=== PATIENT | female | born 1955 | race Caucasian/White ===

== ENCOUNTER 2020-08-09 22:25 | Emergency (ER) | payer OTHER ==
[~2020-08-09] VITALS: Ht 162.6 cm; Wt 59.0 kg
[2020-08-10 01:44] VITALS: BP 160/80
== END 2020-08-10 01:47 | disposition home or self-care (01) ==
LOC: ER 22:25
DX: R06.02 Shortness of breath (principal); Z20.828 Contact with and (suspected) exposure to other viral communicable diseases

== ENCOUNTER 2020-11-04 19:02 | Emergency (ER) | payer OTHER ==
[~2020-11-04] VITALS: Ht 162.6 cm; Wt 59.0 kg
[2020-11-04 21:04] LABS: HEMATOCRIT 40.9 % (37.0-47.0); HEMOGLOBIN 13.6 gm/dL (12.0-15.0); MCH 31.9 pg (26.0-34.0); MCHC 33.1 g/dL (28.0-37.0); MCV 96.4 fL (80.0-100.0); RBC 4.25 mil/uL (4.20-5.00); RDW 13.9 % (10.5-14.5)
[2020-11-04 21:11] LABS: CALCIUM 9.7 mg/dL (8.5-10.1); CREATININE 1.1 mg/dL (0.6-1.0); POTASSIUM 3.6 mmol/L (3.5-5.1)
[2020-11-04 21:23] LABS: ALBUMIN 4.3 g/dL (3.4-5.0); TOTAL PROTEIN 7.7 g/dL (6.4-8.2)
[2020-11-04] MEDS ORDERED: ALEVE220 M1 PO (23:01)
[2020-11-04] MEDS ORDERED: ZOFRAN ODT4 MG PO (23:07)
[2020-11-04] MEDS ORDERED: BENTYL 10 MG CA10 MG PO (23:07)
[2020-11-04 23:35] VITALS: BP 119/63
== END 2020-11-04 23:50 | disposition home or self-care (01) ==
LOC: ER 19:02
PROVIDERS: Nurse Practitioner Family
DX: K52.9 Noninfective gastroenteritis and colitis, unspecified (principal); Z79.899 Other long term (current) drug therapy; Z91.041 Radiographic dye allergy status

== ENCOUNTER 2021-08-18 11:33 | Inpatient (IN) | payer OTHER ==
[~2021-08-18] VITALS: Ht 162.6 cm; Wt 55.3 kg
--- NOTE | ~2021-08-18 | EMS ---
[facility] [address] [place] [address] EMS Patient Care Report Name: SPARKLE MOCTEZUMA Room #: 207-P [facility] IN M.R.#: [id number] Admission: 08/18/21 Attend Phys: Abi Dickerson MD Discharge: 08/19/21 Date of : 57 Report #: [id number] THIS REPORT FOR: //name// Report Transmitted: 09/04/2021 17:52 EMS Care Summary [facility] MED-ACT Incident [id number] @ 08/18/2021 10:53 Incident Location [address] [place] [address] Patient SPARKLE MOCTEZUMA Female, 66 Years 1955 Patient Address [address] [place] [address] Patient History None Reported, Chief Complaint difficulty breathing Disposition Transported No Lights/[place] Dispatch Reason Chest Pain (Non-Traumatic) Transported To [facility] Narrative Arrived to find pt sitting on an exam table in a doctors office. Pt complained of difficulty breathing and chest tightness since evening. Pt also complained of a sore throat, difficulty swallowing, a productive cough, and palpations. Upon EMS arrival pt appeared very anxious and was hyperventilating. Pt denied fever, . Pt stated it just felt like she could not get a deep breath. Pt was assisted to the cot and placed in the position of comfort. En route to was couched to slow her breathing and pt seemed to calm down. Upon arrival pt was taken to RM 1 and care transferred to staff training and development manager [facility] [address] [place] [address] EMS Patient Care Report Name: SPARKLE MOCTEZUMA Room #: 207-P DIS IN M.R.#: [id number] Admission: 08/18/21 Attend Phys: Aib Dickerson MD Discharge: 08/19/21 Date of : 57 Report #: [id number] with report. Initial Vitals @11:10P: 45,SpO2: 94, @11:06P: 111,SpO2: 98,PA Suspected: false @11:27P: 101,R: 18,BP: 173/82,Pain: 2/10,GCS: 15,Glucose: 103,SpO2: 99,Revised Trauma: 12, @11:04P: 124,R: 18,BP: 198/95,Pain: 2/10,GCS: 15,Temp: 97.6F,SpO2: 97,Revised Trauma: 12, Impression Anxiety reaction/Emotional upset Procedures @11:06 12-Lead ECG @11:15 IV Therapy - Saline Lock 10cc (18 ga) Site: Antecubital-Right Response: UnchangedFailed Timeline 10:50,Call Received 10:50,Psap Call 10:53,Dispatched 10:54,En Route 10:59,On Scene 11:01,At Patient 11:04,BP: 198/95 M,PULSE: 124,RR: 18 R,SPO2: 97 Ox,ETCO2: ,BG: ,PAIN: 2,GCS: 15, 11:06,12-Lead ECG, 11:06,BP: / M,PULSE: 111,RR: R,SPO2: 98 Ox,ETCO2: ,BG: ,PAIN: ,GCS: , 11:10,BP: / M,PULSE: 45,RR: R,SPO2: 94 Ox,ETCO2: ,BG: ,PAIN: ,GCS: , 11:15,IV Therapy - Saline Lock 10cc 18 ga Site: Antecubital-Right,Response: UnchangedFailed, 11:21,Depart Scene 11:27,BP: 173/82 M,PULSE: 101,RR: 18 R,SPO2: 99 Ox,ETCO2: ,B,PAIN: 2,GCS: 15, 11:28,At Destination 11:50,Call Closed Disclaimer v1.1 Copyright 2020 [employer] This EMS Care Summary contains data elements from the applicable legal record (which may be displayed differently). It is designed to provide pertinent information for the following purposes: continuity of care, clinical quality, and state data reporting. The complete legal [place] [address] EMS Patient Care Report Name: SPARKLE MOCTEZUMA Room #: 207-P [facility] IN M.R.#: [id number] Admission: 08/18/21 Attend Phys: Abi Dickerson MD Discharge: 08/19/21 Date of : 57 Report #: [id number] and administrators of the receiving hospital in [employer]'s Patient Tracker. All data is provided "as is."
--- NOTE | ~2021-08-18 | EMS ---
[facility] [address] [place] [address] EMS Patient Care Report Name: SPARKLE MOCTEZUMA Room #: 207-P [facility] IN M.R.#: [id number] Admission: 08/18/21 Attend Phys: Abi Dickerson MD Discharge: 08/19/21 Date of : 57 Report #: [id number] THIS REPORT FOR: //name// Report Transmitted: 08/23/2021 14:07 EMS Care Summary [facility] MED-ACT Incident [id number] @ 08/18/2021 10:53 Incident Location [address] [place] [address] Patient SPARKLE MOCTEZUMA Female, 66 Years 1955 Patient Address [address] [place] [address] Patient History None Reported, Chief Complaint difficulty breathing Disposition Transported No Lights/[place] Dispatch Reason Chest Pain (Non-Traumatic) Transported To [facility] Narrative Arrived to find pt sitting on an exam table in a doctors office. Pt complained of difficulty breathing and chest tightness since evening. Pt also complained of a sore throat, difficulty swallowing, a productive cough, and palpations. Upon EMS arrival pt appeared very anxious and was hyperventilating. Pt denied fever, . Pt stated it just felt like she could not get a deep breath. Pt was assisted to the cot and placed in the position of comfort. En route to was couched to slow her breathing and pt seemed to calm down. Upon arrival pt was taken to RM 1 and care transferred to staff toxicologist [facility] [address] [place] [address] EMS Patient Care Report Name: SPARKLE MOCTEZUMA Room #: 207-P [facility] IN M.R.#: [id number] Admission: 08/18/21 Attend Phys: Abi Dickerson MD Discharge: 08/19/21 Date of : 57 Report #: [id number] with report. Initial Vitals @11:10P: 45,SpO2: 94, @11:06P: 111,SpO2: 98,PR Suspected: false @11:27P: 101,R: 18,BP: 173/82,Pain: 2/10,GCS: 15,Glucose: 103,SpO2: 99,Revised Trauma: 12, @11:04P: 124,R: 18,BP: 198/95,Pain: 2/10,GCS: 15,Temp: 97.6F,SpO2: 97,Revised Trauma: 12, Impression Anxiety reaction/Emotional upset Procedures @11:06 12-Lead ECG @11:15 IV Therapy - Saline Lock 10cc (18 ga) Site: Antecubital-Right Response: UnchangedFailed Timeline 10:50,Call Received 10:50,Psap Call 10:53,Dispatched 10:54,En Route 10:59,On Scene 11:01,At Patient 11:04,BP: 198/95 M,PULSE: 124,RR: 18 R,SPO2: 97 Ox,ETCO2: ,BG: ,PAIN: 2,GCS: 15, 11:06,12-Lead ECG, 11:06,BP: / M,PULSE: 111,RR: R,SPO2: 98 Ox,ETCO2: ,BG: ,PAIN: ,GCS: , 11:10,BP: / M,PULSE: 45,RR: R,SPO2: 94 Ox,ETCO2: ,BG: ,PAIN: ,GCS: , 11:15,IV Therapy - Saline Lock 10cc 18 ga Site: Antecubital-Right,Response: UnchangedFailed, 11:21,Depart Scene 11:27,BP: 173/82 M,PULSE: 101,RR: 18 R,SPO2: 99 Ox,ETCO2: ,B,PAIN: 2,GCS: 15, 11:28,At Destination 11:50,Call Closed Disclaimer v1.1 Copyright 2020 [employer] This EMS Care Summary contains data elements from the applicable legal record (which may be displayed differently). It is designed to provide pertinent information for the following purposes: continuity of care, clinical quality, and state data reporting. The complete [place] [address] EMS Patient Care Report Name: SPARKLE MOCTEZUMA Room #: 207-P [facility] IN M.R.#: [id number] Admission: 08/18/21 Attend Phys: Abi Dickerson MD Discharge: 08/19/21 Date of : 57 Report #: [id number] and administrators of the receiving hospital in [employer]'s Patient Tracker. All data is provided "as is."
[~2021-08-18 11:33] MED LIST: ALEVE220 M1 PO; BENTYL 10 MG CA10 MG PO; ZOFRAN ODT4 MG PO
[2021-08-18 11:34] VITALS: BP 147/96
[2021-08-18 12:17] LABS: ABSOLUTE NEUTROPHILS 6.3 thou/uL (1.4-8.2); EOSINOPHILS 1.8 % (0.0-3.0); HEMATOCRIT 42.5 % (37.0-47.0); HEMOGLOBIN 14.1 gm/dL (12.0-15.0); LYMPHOCYTES 19.9 % (24.0-44.0); MCH 32.1 pg (26.0-34.0); MCHC 33.3 g/dL (28.0-37.0); MCV 96.4 fL (80.0-100.0); MONOCYTES 5.5 % (1.0-8.0); PLATELET COUNT 350 thou/uL (150-400); POLYS 71.8 % (36.0-66.0); RBC 4.41 mil/uL (4.20-5.00); RDW 13.8 % (10.5-14.5); WBC 8.8 thou/uL (4.0-11.0)
[2021-08-18 12:24] LABS: CALCIUM 10.2 mg/dL (8.5-10.1); CREATININE 1.2 mg/dL (0.6-1.0)
[2021-08-18 12:54] LABS: URINE BILIRUBIN NEGATIVE (Negative); URINE BLOOD NEGATIVE (Negative); URINE CLARITY SL CLOUDY; URINE COLOR YELLOW; URINE GLUCOSE-RANDOM* NEGATIVE (Negative); URINE KETONES NEGATIVE (Negative); URINE NITRITE-REFLEX NEGATIVE (Negative); URINE PROTEIN (DIPSTICK) NEGATIVE (Negative); URINE UROBILINOGEN 0.2 E.U./dl (0.2-1.0)
[2021-08-18 13:10] LABS: URINE LEUKOCYTES-REFLEX 2+ (Negative)
[2021-08-18 13:12] LABS: BACTERIA-REFLEX >30 Many /HPF (None Seen); CASTS None Seen /LPF (None Seen); CRYSTALS None Seen /LPF (None Seen); SQUAMOUS 4-10 Moderate /LPF (0-3); URINE RBC None Seen /HPF (NONE SEEN); URINE WBC-REFLEX 6-15 Few /HPF (0-5)
[2021-08-18 17:34] LABS: CHOLESTEROL 205 mg/dL (<200); HDL CHOLESTEROL 63 mg/dL (>40); LDL CHOLESTEROL 115 mg/dL (<100); TC:HDL 3.3 Ratio (Not establshd); TRIGLYCERIDE 135 mg/dL (<150); VLDL 27 mg/dL (<40)
[2021-08-18 18:07] VITALS: BP 129/73
[2021-08-18 18:31] VITALS: BP 154/77
[2021-08-18 19:18] LABS: HEMATOCRIT 40.2 % (37.0-47.0); MCH 31.3 pg (26.0-34.0); MCHC 32.3 g/dL (28.0-37.0); MCV 96.9 fL (80.0-100.0); RBC 4.14 mil/uL (4.20-5.00); RDW 13.9 % (10.5-14.5); WBC 7.6 thou/uL (4.0-11.0)
[2021-08-18 19:41] LABS: CALCIUM 9.8 mg/dL (8.5-10.1); POTASSIUM 4.2 mmol/L (3.5-5.1)
[2021-08-18 20:31] VITALS: BP 145/85
--- NOTE | 2021-08-18 21:38 | NUR ---
PT ADMIT FROM ED WITH NSTEMI,COUGH AND UTI.PT IS 66-YEAR -OLD FEMALE,A/OX4.ARRIVED TO UNIT AT SHIFT CHANGE. AT BEDSIDE AT THE BEGINNING OF THE SHIFT.PT DENIES ANY ACUTE DISTRESS.REQUESTING BROTH AND WAS PROVIDED.VSS.PT ORIENTED TO RM AND UNIT ACTIVITIES.DENIES ANY USE OF ANY MEDICATION AT HOME, PRESCRIBED OR OTC.USES MARIJUANA OCCASIONALLY.ADMISSION ASSESSMENT COMPLETED DOCUMENTED.PT DENIES ANY CONCERNS AT THIS TIME.WILL CONTINUE TO MONITOR PER POC.
[2021-08-19 00:18] VITALS: BP 142/89
[2021-08-19 04:06] LABS: GLYCOHEMOGLOBIN (HGB A1C) 5.3 % (4.8-5.6)
[2021-08-19 04:33] VITALS: BP 136/93
--- NOTE | 2021-08-19 07:37 | EKG ---
[place] [address] [facility] [place] [address] ELECTROCARDIOGRAM REPORT Name: RHIANNASPARKLE Room #: 207-P ADM IN M.R.#: [id number] Admission: 08/18/21 Attend Phys: Abi Dickerson MD Discharge: Date of : 57 Report #: [id number] [facility] ED Test Date: 2021-08-18 Test Time: 11:43:29 Pat Name: SPARKLE MOCTEZUMA Department: Room: 207 Gender: F Process Coach: STARR : 1955 Requested By: Garth Freed Order Number: [id number] MD: Merrill Bradshaw Measurements Intervals [place] Rate: 76 P: 39 IN: 110 QRS: 43 QRSD: 83 T: 32 QT: 386 QTc: 435 Interpretive Statements Sinus rhythm Borderline short IN interval Baseline wander in lead(s) III No previous ECG available for comparison Electronically Signed On 08-19-2021 7:37:25 WORKFORCE DEVELOPMENT VICE PRESIDENT by Merrill Bradshaw [email or web address] <ELECTRONICALLY SIGNED> By: Merrill Bradshaw MD, [facility] 08/19/21 0737 1143 1143 Merrill Bradshaw MD, FACC /EPI
[2021-08-19 07:42] VITALS: BP 144/103
[2021-08-19 07:43] VITALS: BP 159/129
[2021-08-19 11:48] VITALS: BP 126/74
[2021-08-19] MEDS ORDERED: CEFUROXIME500 MG PO ×2 (11:51)
[2021-08-19] MEDS ORDERED: TESSALON PERLE100 MG PO ×2 (11:51)
[2021-08-19] MEDS ORDERED: VENTOLIN HFA 1818 GM INH ×2 (11:51)
--- NOTE | 2021-08-19 13:03 | 2DMMODE ---
[facility] [place] [address] 2 D/M-MODE ECHOCARDIOGRAM Name: SPARKLE MOCTEZUMA Room #: 207-P ADM IN M.R.#: [id number] Admission: 08/18/21 Attend Phys: Abi Dickerson MD Discharge: Date of : 57 Report #: [id number] THIS REPORT FOR: cc: FAM - Family physician unknown FAM - Family physician unknown Avila Oh MD [facility] ~ APPROVED REPORT Study performed: 08/19/2021 10:28:53 EXAM: Comprehensive 2D, Doppler, and color-flow Echocardiogram Patient Location: Bedside Room #: 207 Status: routine BSA: 1.59 HR: 108 bpm BP: 159/129 mmHg Rhythm: Tachycardia Other Information Study Quality: Adequate Indications Chest Pain Hx: COVID, COPD. 2D Dimensions RVDd: 22.76 mm IVSd: 10.15 (7-11mm) LVOT Diam: 20.31 (18-24mm) LVDd: 40.57 mm PWd: 9.76 (7-11mm) LVDs: 27.94 (25-40mm) Left Atrium: 30.83 (27-40mm) Aortic Root: 30.96 mm Volumes Left Atrial Volume (Systole) Single Plane 4CH: 38.10 mL Single Plane 2CH: 36.45 mL LA ESV Index: 24.00 mL/m2 Aortic Valve AoV Peak Gonzalo.: 2.02 m/s AO Peak Gr.: 16.31 mmHg LVOT Max P.79 mmHg LVOT Max V: 1.40 m/s [facility] [place] [address] [address] 2 D/M-MODE ECHOCARDIOGRAM Name: SPARKLE MOCTEZUMA Room #: 207-P [facility] IN M.R.#: [id number] Admission: 08/18/21 Attend Phys: Abi Dickerson MD Discharge: Date of : 57 Report #: [id number] CORINA Vmax: 2.24 cm2 Mitral Valve E/A Ratio: 0.5 MV Decel. Time: 111.96 ms MV E Max Gonzalo.: 0.49 m/s MV A Gonzalo.: 1.06 m/s MV PHT: 32.47 ms Pulmonary Valve PV Peak Gonzalo.: 1.11 m/s PV Peak Gr.: 4.89 mmHg Pulmonary Vein P Vein S: 0.53 m/s P Vein D: 0.48 m/s P Vein S/D Ratio: 1.10 Tricuspid Valve TR Peak Gonzalo.: 2.41 m/s RAP Estimate: 5.00 mmHg TR Peak Gr.: 23.21 mmHg PA Pressure: 27.00 mmHg Left Ventricle The left ventricle is normal size. There is normal LV segmental wall motion. There is normal left ventricular wall thickness. Left ventricular systolic function is hyperdynamic. LVEF is 65-70%. Mild diastolic dysfunction Right Ventricle The right ventricle is normal size. The right ventricular systolic function is normal. Atria The left atrium size is normal. The right atrium size is normal. Aortic Valve The aortic valve is mildly calcified. No aortic regurgitation There is no aortic valvular stenosis. Mitral Valve The mitral valve is normal in structure. There is no mitral valve regurgitation noted. No evidence of mitral valve stenosis. Tricuspid Valve The tricuspid valve is normal in structure. Trace tricuspid [facility] [address] [place] [address] 2 D/M-MODE ECHOCARDIOGRAM Name: SPARKLE MOCTEZUMA Room #: 207-P [facility] [place] IN M.R.#: [id number] Admission: 08/18/21 Attend Phys: Abi Dickerson MD Discharge: Date of : 57 Report #: [id number] regurgitation. Estimated PAP is 27mmHg. Pulmonic Valve The pulmonary valve is normal in structure. There is no pulmonic valvular regurgitation. Great Vessels The aortic root is normal in size. Ascending aorta is not well visualized. IVC is normal in size and collapses >50% with inspiration. Pericardium There is no pericardial effusion. <Conclusion> Left ventricular systolic function is hyperdynamic. There is normal LV segmental wall motion. LVEF is 65-70%. Mild diastolic dysfunction The aortic valve is mildly calcified. No aortic regurgitation or stenosis The mitral valve is normal in structure. No mitral valve regurgitation. Trace tricuspid regurgitation. Estimated pulmonary artery pressure of 27mmHg. There is no pericardial effusion. <ELECTRONICALLY SIGNED> By: Avila Oh MD, [facility] 08/19/21 1303 1303 130 Avila Oh MD, [facility] /INF
[2021-08-19 13:24] VITALS: BP 126/74
--- NOTE | 2021-08-19 14:19 | NUR ---
Assumed care of pt this AM. Pt A&O x4, on RA. SR on the monitor. Pt c/o noncardiac chest pain associated w/ cough. Given pain medication. Plan to discharge today w/ heart monitor. IV & tele dc'ed. Discharge education provided, forms signed & posted in chart. Pt wheeled to main entrance.
[2021-08-20] MEDS ORDERED: PREDNISONE 10 M10 M1 PO ×2 (11:21)
== END 2021-08-19 14:58 | disposition home or self-care (01) | DRG 205 ==
LOC: ER 11:33 → 2N 14:22 → EROBS 14:22 → 2N 18:06
PROVIDERS: Nurse Practitioner; Nurse Practitioner Family; ADMIT Internal Medicine; ATTEND Internal Medicine
DX: M94.0 Chondrocostal junction syndrome [Tietze] (principal); R65.11 Systemic inflammatory response syndrome (SIRS) of non-infectious origin with acute organ dysfunction; N39.0 Urinary tract infection, site not specified; I49.9 Cardiac arrhythmia, unspecified; R77.8 Other specified abnormalities of plasma proteins; Z20.822 Contact with and (suspected) exposure to COVID-19; F03.90 Unspecified dementia, unspecified severity, without behavioral disturbance, psychotic disturbance, mood disturbance, and anxiety; F12.90 Cannabis use, unspecified, uncomplicated; F41.9 Anxiety disorder, unspecified; Z91.041 Radiographic dye allergy status; Z79.82 Long term (current) use of aspirin; Z79.899 Other long term (current) drug therapy
CPT/HCPCS: 10081

== ENCOUNTER → 2021-08-29 | Outpatient (CLI) | payer OTHER ==
[~2021-08-29] MED LIST changes: +CEFUROXIME500 MG PO; +PREDNISONE 10 M10 M1 PO; +TESSALON PERLE100 MG PO; +VENTOLIN HFA 1818 GM INH
== END ==
LOC: SJCVC 13:11
PROVIDERS: ATTEND Internal Medicine Cardiovascular Disease
DX: R07.9 Chest pain, unspecified (principal); R00.2 Palpitations; R06.00 Dyspnea, unspecified; I10 Essential (primary) hypertension; Z87.891 Personal history of nicotine dependence; Z72.89 Other problems related to lifestyle; Z79.899 Other long term (current) drug therapy; Z88.8 Allergy status to other drugs, medicaments and biological substances

== ENCOUNTER → 2021-09-24 | Outpatient (CLI) | payer OTHER | LOC: SJCVCIMAG 08:50 | PROVIDERS: ATTEND Internal Medicine Cardiovascular Disease | DX: R00.2 Palpitations (principal); R07.9 Chest pain, unspecified; R06.00 Dyspnea, unspecified; I10 Essential (primary) hypertension; F12.10 Cannabis abuse, uncomplicated; Z87.891 Personal history of nicotine dependence; Z72.89 Other problems related to lifestyle; Z91.041 Radiographic dye allergy status; Z79.899 Other long term (current) drug therapy ==